=== PATIENT | male | born 1990 | race Caucasian/White ===

== ENCOUNTER 2020-11-08 13:08 | Outpatient (CLI) | payer OTHER, SELFPAY ==
[2020-11-08 14:27] LABS: Semen Viscosity Increased (Not Increa.); Volume Semen 6 mL (1.5-5.0)
[2020-11-08 14:28] LABS: Liquefaction Semen Complete in 30 min. (<30 minutes); Semen Color Opaque (Grey-opaque); Semen Immotility 50 %; Semen Morphology Result to Follow; Semen Non-Progressive Motility 10 %; Semen Progressive Motility 40 % (>32); Semen Total Motility 50 (>40% (PM+NP))
[2020-11-11 14:44] LABS: Fructose, Semen 165 mg/dL (150-600)
== END 2020-11-08 13:09 | disposition home or self-care (01) ==
LOC: CHSLAB 13:14
PROVIDERS: PCP Internal Medicine; Visit Provider Obstetrics & Gynecology
DX: Z31.41 Encounter for fertility testing (principal)
CPT/HCPCS: 82757; 88160; 89320